=== PATIENT | female | born 1945 | race Caucasian/White ===

== ENCOUNTER → 2017-06-04 | Outpatient (CLI) | payer OTHER ==
[~2017-06-04] VITALS: Ht 157.5 cm; Wt 78.9 kg
[~2017-06-04] MED LIST: Levothroid,Synthroid PO; NEXIUM40 MG PO; Vicodin,Lortab 5/500 PO
== END | disposition home or self-care (01) ==
LOC: AMB 11:49
DX: Z12.11 Encounter for screening for malignant neoplasm of colon (principal); K63.5 Polyp of colon; E03.9 Hypothyroidism, unspecified
CPT/HCPCS: 88305